=== PATIENT | female | born 1955 | race Caucasian/White ===

== ENCOUNTER → 2016-10-29 | Outpatient (REF) | payer BC, OTHER | LOC: M LAB REF 11:29 | PROVIDERS: ATTEND Family Medicine | DX: R92.0 Mammographic microcalcification found on diagnostic imaging of breast (principal) ==

== ENCOUNTER → 2023-02-01 | Outpatient (CLI) | payer OTHER ==
[2023-02-01 11:21] LABS: BASO # 0.1 10^3/uL (0.0-0.2); BASO % 0.5 % (0.0-1.0); EOS # 0.2 10^3/uL (0.0-0.5); EOS % 1.7 % (0.0-3.0); HEMATOCRIT 43.3 % (36.0-47.0); HEMOGLOBIN 14.7 g/dl (12.0-15.5); LYMPH # 3.1 10^3/uL (1.5-5.0); LYMPH % 24.8 % (24.0-44.0); MEAN CORPUSCULAR HEMOGLOBIN 29.3 pg (27.0-33.0); MEAN CORPUSCULAR HGB CONC 33.9 g/dl (32.0-36.5); MEAN CORPUSCULAR VOLUME 86.4 fl (80.0-96.0); MONO # 0.6 10^3/uL (0.0-0.8); MONO % 4.9 % (2.0-8.0); NEUTROPHILS # 8.4 10^3/uL (1.5-8.5); NEUTROPHILS % 67.9 % (36.0-66.0); PLATELET COUNT, AUTOMATED 296 10^3/uL (150-450); RED BLOOD COUNT 5.01 10^6/uL (4.00-5.40); WHITE BLOOD COUNT 12.4 10^3/uL (4.0-10.0)
[2023-02-01 11:53] LABS: BLOOD UREA NITROGEN 12 MG/DL (9-23); CALCIUM LEVEL 9.7 MG/DL (8.3-10.6); CARBON DIOXIDE LEVEL 25 MMOL/L (20-31); CHLORIDE LEVEL 101 MMOL/L (98-107); CREATININE FOR GFR 0.46 MG/DL (0.55-1.30); GLOMERULAR FILTRATION RATE > 60.0 (>45); GLUCOSE, FASTING 212 MG/DL (74-106); POTASSIUM SERUM 4.1 MMOL/L (3.5-5.1); SODIUM LEVEL 138 MMOL/L (136-145)
[2023-02-01 12:50] LABS: HEMOGLOBIN A1c 7.5 % (4.0-6.0)
== END ==
LOC: M EKG 09:51
PROVIDERS: ATTEND Surgery
DX: D05.11 Intraductal carcinoma in situ of right breast (principal); E11.9 Type 2 diabetes mellitus without complications; Z79.4 Long term (current) use of insulin

== ENCOUNTER → 2023-06-24 | Outpatient (CLI) | payer OTHER ==
[~2023-06-24] MED LIST: AMOX875T2; ANAS1TAB2 PO; LOSA100T5; METF-838; SIMV20TA22
== END ==
LOC: M WHC 11:02
PROVIDERS: ATTEND Internal Medicine Hematology & Oncology
DX: M85.851 Other specified disorders of bone density and structure, right thigh (principal); D05.11 Intraductal carcinoma in situ of right breast; Z79.811 Long term (current) use of aromatase inhibitors